=== PATIENT | male | born 1975 | race Caucasian/White ===

== ENCOUNTER 2020-06-15 09:11 | Emergency (ER) | payer OTHER, SELFPAY ==
[2020-06-15 09:12] VITALS: BP 130/97; PULSE 83; RESP 16; TEMP 36.6; O2SAT 98; BMI 27.8
--- NOTE | 2020-06-15 09:23 | HMH.EDGENADL ---
ED Disposition Clinical Impression: Puncture wound Disposition: Home, Self-Care Condition on Discharge: Good Instructions: DI for Puncture Wound Additional Instructions: Additional instructions for WOUND CARE: Clean the wound daily and a bandage. See your physician in 3-5 days for a wound check if any concerns. Return to the emergency room if increasing pain, swelling, redness, red streaks, pus drainage, or fever. Referrals: PCP,No [Non-Staff] - - Critical Care Critical Care Time: No Attestation: On 06/15/20, the high probability of a clinically significant, sudden or life threatening deterioration of the following system(s) required my full and direct attention, intervention and personal management. The time I documented below is in addition to time spent performing reported procedures but includes the following listed in this critical care notation. Medical Decision Making - Harsha Inquiry Pt receiving controlled substance: No Vital Signs: 06/15/20 09:12 Temperature 97.9 F Temperature Source Oral Pulse Rate [Radial] 83 Respiratory Rate 16 Blood Pressure [Right Arm] 130/97 H Blood Pressure Mean [Right Arm] 108 Blood Pressure Position [Right Arm] Sitting 02 Sat by Pulse Oximetry 98 Oxygen Delivery Method Room Air Orders (Tests/Meds): ED MEDICATIONS Discontinued Medications Generic Name Dose Route Start Last Admin Trade Name Freq PRN Reason Stop Dose Admin Neomycin/Polymyxin/Bacitracin 1 each 06/15/20 09:31 Neosporin Ointment 0.9gm Udp TP 06/15/20 09:32 ONCE ONE ORDERS Category Date Time Status Hand XR left minimum 3 views [XR hand LT min 3V] Stat Exams 06/15/20 09:28 Taken - Radiology Data #1 Image(s): Hand Image Reviewed: Yes I reviewed the patient's radiology image Soft tissue injury/air in first webspace. No foreign body or fracture seen. General Adult HPI - General Chief complaint: Wound/Laceration Stated complaint: WC [id number] puncture wound,left hand Time Seen by Provider: 06/15/20 09:23 Mode of Arrival: Ambulatory Limitations: No Limitations Description of Symptoms (Recalled from ER Triage Doc. by RN): to ed per pvt car pt employee [employer] was using a drill it slipped hitting lt hand web space between thumb and index finger. PW noted no active bleeding noted. - History of Present Illness HPI narrative: States I stabbed myself . Puncture wound left hand first webspace with a drill bit when his drill slipped. Denies numbness or weakness. Does not think it hit bone, but is not sure, states it went pretty deep. Does not suspect foreign body. States he does not have much pain. Last tetanus immunization 2 weeks ago at the start of his employment. States I was just going to put a Band-Aid on it, but they made me come get checked out . - Related Data Home Medications Medication Instructions Recorded Confirmed Pantoprazole Sodium 40 mg PO DAILY 06/15/20 06/15/20 Allergies Allergy/AdvReac Type Severity Reaction Status Date / Time No Known Allergies Allergy Verified 06/15/20 09:23 [facility] History - Hepatitis A Screen Drug use history?: No High risk sexual behaviors?: No History of sexually transmitted infection?: No Currently employed?: No Childcare worker?: No Do you have indoor plumbing?: Yes Do you have electricity?: Yes Attestation statement:: This patient has been screened for Hepatitis A risk factors. I have reviewed the patient's past medical history: Yes ROS Obtained: Yes Systems reviewed as appropriate & no additional complaints - Musculoskeletal Musculoskeletal: Reports as per HPI - Neurologic Neurologic: Denies numbness, Denies weakness Physical Exam - General General appearance: alert, in no apparent distress - Respiratory Respiratory exam: Absent: respiratory distress - Cardiovascular Cardiovascular exam: Present: regular rate - Extremities Exam Extremities exam: Present: normal capillary
--- NOTE | 2020-06-15 09:28 | XR_ITS ---
PROCEDURE: XR HAND LT MIN 3V Referring Doctor: Meliton Palma Patient Age:45Y CLINICAL INDICATION: injury drill bit with between 1st and 2nd digits COMPARISON: No exams were available for comparison FINDINGS: no fracture or dislocation. No lytic or blastic change. There is normal mineralization. The joint spaces are well-preserved. No significant degenerative/arthritic changes. No erosive changes evident. There is soft tissue changes related to the injury of the with space between the 1st and 2nd digit but no radiopaque foreign bodies seen here. Osseous structures appear intact IMPRESSION: No fracture evident. Osseous structures intact left hand Soft tissue injury and changes at the webspace between 1st and 2nd digit noted . No radiopaque foreign body Dictated by: Guanakito Cabrera MD 06/15/2020 10:21 Guanakito Cabrera MD in [place] 06/15/2020 10:21
--- NOTE | 2020-06-15 10:34 | PC.NURSE ---
wound flushed with large amounts of water and dressing applied
--- NOTE | 2020-06-15 10:35 | PC.NURSE ---
LAB CALLED REGARDING UDS
[2020-06-15 10:47] VITALS: BP 126/93; PULSE 65; RESP 20; TEMP 36.6; O2SAT 99
--- NOTE | 2020-06-15 10:48 | PC.NURSE ---
LAB AT BEDSIDE
== END 2020-06-15 10:57 | disposition home or self-care (01) ==
PROVIDERS: Emergency Provider Emergency Medicine; PCP Internal Medicine
DX: S61.432A Puncture wound without foreign body of left hand, initial encounter (principal); W31.0XXA Contact with mining and earth-drilling machinery, initial encounter; Y92.69 Other specified industrial and construction area as the place of occurrence of the external cause; Y99.0 Civilian activity done for income or pay
CPT/HCPCS: 73130; 99282

== ENCOUNTER 2020-09-17 14:04 | Emergency (ER) | payer OTHER, SELFPAY ==
[2020-09-17 14:20] VITALS: BP 129/91; PULSE 90; RESP 16; TEMP 36.8; O2SAT 100; BMI 27.3
--- NOTE | 2020-09-17 14:26 | HMH.EDUTC ---
[facility] [place] Clinical Impression: Viral syndrome Disposition: Home, Self-Care Condition on Discharge: Good Instructions: Preventing the Spread of Coronavirus Discharge Instructions Additional Instructions: Drink plenty of fluids. Take tylenol for pain or fever. Return if you begin to have difficulty breathing. Follow up with your regular doctor. GO TO THE ER FOR ANY WORSENING SYMPTOMS Prescriptions: Ondansetron [Zofran 4mg ODT] 4 mg PO Q8HP PRN #20 tab.rapdis PRN Reason: Nausea Transmission Status: Received by [id number] Referrals: Jose Guy [Primary Care Provider] - Time of Disposition: 14:29 Medical Decision Making - Medical Records Medical records reviewed: No: I reviewed the patient's medical records. - Harsha Inquiry Pt receiving controlled substance: No Vital Signs: 09/17/20 14:20 09/17/20 14:48 Temperature 98.3 F 98 F Temperature Source Oral Pulse Rate 79 Pulse Rate [Right] 90 Respiratory Rate 16 14 Blood Pressure 000/00 L Blood Pressure [Right Arm] 129/91 H Blood Pressure Mean [Right Arm] 103 Blood Pressure Source [Right Arm] Automatic Cuff Blood Pressure Position [Right Arm] Sitting 02 Sat by Pulse Oximetry 100 Oxygen Delivery Method Room Air Orders (Tests/Meds): ORDERS Category Date Time Status Covid-19 Nasal PCR ([facility]) Routine Lab 09/17/20 14:15 Received [facility] [place] HPI - General Stated complaint: cov test Time Seen by Provider: 09/17/20 14:26 Mode of Arrival: Ambulatory Source of Information: Patient Limitations: No Limitations Description of Symptoms (Recalled from Triage Doc. by RN): pt was out of state to [place] this past weekend. pt c/o nausea, lethary, cough , PIZARRO, and runny nose. HEENT Symptoms (Recalled from RN notes): Yes (PIZARRO and runny nose) Resp Symptoms (Recalled from RN notes): Yes (cough) Skin Symptoms (Recalled from RN notes): No MS Symptoms (Recalled from RN notes): No Functional Status (Recalled from RN notes): na - History of Present Illness Provider Complaint: He is here needing to be tested for covid. He states that for the past 2 days he has had chilling, a dry cough, sore throat and nausea. He was exposed to covid-19 last week. - Related Data Home Medications Medication Instructions Recorded Confirmed Pantoprazole Sodium 40 mg PO DAILY 06/15/20 06/15/20 Previous Rx's Medication Instructions Recorded Ondansetron [Zofran 4mg ODT] 4 mg PO Q8HP PRN #20 tab.rapdis 09/17/20 Allergies Allergy/AdvReac Type Severity Reaction Status Date / Time No Known Allergies Allergy Verified 06/15/20 09:23 - Worker's Comp Is this a Worker's Comp case?: No [facility] History - Hepatitis A Screen Drug use history?: No High risk sexual behaviors?: No History of sexually transmitted infection?: No Currently employed?: No Childcare worker?: No Do you have indoor plumbing?: Yes Do you have electricity?: Yes Attestation statement:: This patient has been screened for Hepatitis A risk factors. I have reviewed the patient's past medical history: Yes ROS Obtained: Yes All systems reviewed & no additional complaints - Constitutional Constitutional: Reports system reviewed and no additional complaints, except as docu - Eyes Eyes: Reports system reviewed and no additional complaints, except as docu - ENT Ears, Nose, Mouth, and Throat: Reports system reviewed and no additional complaints, except as docu - Cardiovascular Cardiovascular: Reports system reviewed and no additional complaints, except as docu Physical Exam - General General appearance: alert, in no apparent distress - Head Head exam: atraumatic, normocephalic, normal inspection - Eye Eye exam: Present: normal appearance, PERRL, EOMI - ENT ENT exam: Present: normal exam, normal oropharynx, mucous membranes moist, TM's normal bilaterally, normal external ear exam - Neck Neck exam: Present: normal inspection, full ROM, trachea mi
[2020-09-17 14:48] VITALS: BP 000/00; PULSE 79; RESP 14; TEMP 36.6
--- NOTE | 2020-09-18 09:15 | PC.NURSE ---
spoke with pt to relay positive covid results.
== END 2020-09-17 14:48 | disposition home or self-care (01) ==
PROVIDERS: Emergency Provider Nurse Practitioner Family; PCP Internal Medicine
DX: U07.1 COVID-19 (principal)
CPT/HCPCS: 99202; G0463; U0003

== ENCOUNTER 2020-12-20 12:58 | Emergency (ER) | payer OTHER, SELFPAY ==
[2020-12-20] VITALS (8 sets, daily range): BP systolic 118–149; BP diastolic 82–98; PULSE 70–74; RESP 16–21; TEMP 36.5–36.7; O2SAT 96–100; BMI 27.3
--- NOTE | 2020-12-20 13:34 | XR_ITS ---
PROCEDURE: XR CHEST PORTABLE CLINICAL HISTORY: near syncope COMPARISON: No exams were available for comparison FINDINGS: The cardiomediastinal silhouette and pulmonary vascularity are within normal limits. The lungs are clear without infiltrates, suspicious nodules, or pleural effusions. There are mild atelectatic changes or fibrotic changes in the right lung base. No acute bony findings. IMPRESSION: Mild right basilar atelectasis or fibrosis otherwise negative Dictated by: Reggie Zambrano MD 12/20/2020 15:33 Reggie Zambrano MD in [place] 12/20/2020 15:33
--- NOTE | 2020-12-20 13:34 | ECG_ITS ---
APPROVED REPORT Exam: Resting ECG HR:73 bpm ECG Measurements Heart Rate 73 AXES AK 180 P 71 QRSd 78 QRS 79 QT 360 T 74 QTc 396 Conclusion Normal sinus rhythm Normal ECG Electronically signed by : Elmer Walls, 12/20/2020 17:39:38
--- NOTE | 2020-12-20 13:40 | HMH.EDSYNC ---
ED Disposition Clinical Impression: Near syncope Disposition: Home, Self-Care Condition on Discharge: Good Instructions: Dizziness, Nonvertigo Referrals: Jose Guy [Primary Care Provider] - - Critical Care Critical Care Time: No Attestation: On 12/20/20, the high probability of a clinically significant, sudden or life threatening deterioration of the following system(s) required my full and direct attention, intervention and personal management. The time I documented below is in addition to time spent performing reported procedures but includes the following listed in this critical care notation. Medical Decision Making - Medical Records Medical records reviewed: Yes: I reviewed the patient's medical records. - Harsha Inquiry Pt receiving controlled substance: No Vital Signs: 12/20/20 13:00 12/20/20 13:29 12/20/20 13:31 Temperature 98.1 F 97.7 F Temperature Source Oral Oral Pulse Rate 74 Pulse Rate [Right Brachial] 74 73 Respiratory Rate 19 21 16 Blood Pressure 146/98 H Blood Pressure [Right Arm] 149/86 H 146/98 H Blood Pressure Mean [Right Arm] 107 114 Blood Pressure Source [Right Arm] Automatic Cuff Automatic Cuff Blood Pressure Position [Right Arm] Sitting Sitting 02 Sat by Pulse Oximetry 100 97 98 Oxygen Delivery Method Room Air Room Air 12/20/20 13:45 12/20/20 13:51 12/20/20 14:00 Temperature Temperature Source Pulse Rate 71 70 73 Pulse Rate [Right Brachial] Respiratory Rate Blood Pressure 129/82 129/82 124/84 Blood Pressure [Right Arm] Blood Pressure Mean [Right Arm] Blood Pressure Source [Right Arm] Blood Pressure Position [Right Arm] 02 Sat by Pulse Oximetry 96 97 98 Oxygen Delivery Method 12/20/20 14:30 Temperature Temperature Source Pulse Rate 73 Pulse Rate [Right Brachial] Respiratory Rate Blood Pressure 118/82 Blood Pressure [Right Arm] Blood Pressure Mean [Right Arm] Blood Pressure Source [Right Arm] Blood Pressure Position [Right Arm] 02 Sat by Pulse Oximetry 96 Oxygen Delivery Method - Lab Data Lab results reviewed: Yes: I reviewed the patient's lab results. Lab Results 12/20/20 13:35: WBC 6.7, RBC 5.31, Hgb 16.0, Hct 47.6, MCV 89.6, MCH 30.1, MCHC 33.6, RDW 12.8, Plt Count 203, MPV 7.4, Neut % (Auto) 64.3, Lymph % (Auto) 28.5, Piute % (Auto) 5.0, Eos % (Auto) 1.9, Baso % (Auto) 0.3, Neut # (Auto) 4.3, Lymph # (Auto) 1.9, Piute # (Auto) 0.3, Eos # (Auto) 0.1, Baso # (Auto) 0.0 12/20/20 13:35: Sodium 141, Potassium 3.7, Chloride 105, Carbon Dioxide 28, Anion Gap 11.7, BUN 13, Creatinine 0.90, Estimated Creat Clear 115, Estimated GFR 91, Est GFR ( Amer) 110, Glucose 104 H, Calcium 9.0, Total Bilirubin 1.1, AST 27, ALT 21, Alkaline Phosphatase 53, Troponin I < 0.01, Total Protein 7.4, Albumin 4.5, Globulin 2.9, Albumin/Globulin Ratio 1.6 Result diagrams: 12/20/20 13:35 12/20/20 13:35 Orders (Tests/Meds): ED MEDICATIONS Generic Name Dose Route Start Last Admin Trade Name Freq PRN Reason Stop Dose Admin Sodium Chloride 1,000 mls @ 999 mls/hr 12/20/20 13:45 12/20/20 13:41 Sod Chlor 0.9% 1000ml Bag IV 12/20/20 14:45 999 mls/hr .Q1H1M GERMAN Administration ORDERS Category Date Time Status XR chest portable Stat Exams 12/20/20 13:34 Taken Troponin I Q3H Lab 12/20/20 16:45 Ordered Troponin I Q3H Lab 12/20/20 19:45 Ordered ECG Request by /Nse Stat Y 12/20/20 13:34 Ordered Medical Decision Narrative: Benign exam. No evidence or risk factors for PE, DVT. No stroke symptoms. Differential diagnosis includes orthostatic hypotension versus arrhythmia versus electrolyte abnormality negative workup. bahamian syncope rule score of 0, low risk for 30 day mortality. [facility], return indications reviewed. Syncope HPI - General Chief Complaint: Dizziness Stated Complaint: lightheaded, weakness, cold sweats Time Seen by Provider: 12/20/20 13:45 Mode of Arrival: Ambulat
[2020-12-20 13:48] LABS: Basophils % 0.3 % (0.1-2.0); Eosinophils # 0.1 K/mm3 (0.0-0.4); Eosinophils % 1.9 % (0.1-12.0); Hematocrit 47.6 % (42.0-52.0); Lymphocytes # 1.9 K/mm3 (0.7-4.5); Lymphocytes % 28.5 % (10-50); Mean Corpuscular HGB Conc 33.6 g/dL (31.8-35.4); Mean Corpuscular Hemoglobin 30.1 pg (27.0-31.2); Mean Corpuscular Volume 89.6 fl (80-94); Mean Platelet Volume 7.4 fl (7.4-10.4); Monocytes # 0.3 K/mm3 (0.1-1.0); Neutrophils # 4.3 K/mm3 (1.8-7.8); Neutrophils % 64.3 % (37.0-80.0); Platelet Count 203 K/mm3 (142-424); Red Blood Count 5.31 M/mm3 (4.60-6.20); Red Cell Distribution Width 12.8 % (11.5-17.5); White Blood Count 6.7 K/mm3 (4.8-10.8)
[2020-12-20 13:49] LABS: Chloride 105 mmol/L (98-107); Potassium 3.7 mmoL/L (3.5-5.1); Sodium 141 mmol/L (136-145)
[2020-12-20 13:51] LABS: Blood Urea Nitrogen 13 mg/dl (9-20); Creatinine Clearance Estimated 115 mL/min (50-200); Estimated Glomerular Filt Rate 91 ml/min (>60); GFR (African American) 110 ML/MIN (>60)
[2020-12-20 13:52] LABS: Alanine Aminotransferase 21 U/L (12-78); Albumin Level 4.5 g/dl (3.5-5.0); Albumin/Globulin Ratio 1.6 (1.1-1.8); Alkaline Phosphatase 53 U/L (38-126); Anion Gap 11.7 mEq/L (5-15); Aspartate Amino Transferase 27 U/L (17-59); Bilirubin,Total 1.1 mg/dl (0.2-1.3); Carbon Dioxide 28 mmol/L (22.0-30.0); Globulin 2.9 g/dL (1.3-3.2); Glucose 104 mg/dl (74-100); Total Protein,Serum 7.4 g/dl (6.3-8.2)
[2020-12-20 14:06] LABS: Troponin I < 0.01 ng/ml (0.00-0.034)
== END 2020-12-20 15:00 | disposition home or self-care (01) ==
LOC: UTC 13:10 → ER 13:23
PROVIDERS: Emergency Provider Emergency Medicine; PCP Internal Medicine
DX: R55 Syncope and collapse (principal)
CPT/HCPCS: 71045; 80053; 84484; 85025; 93005; 96365; 99283

== ENCOUNTER 2024-01-08 09:09 | Emergency (ER) | payer OTHER, SELFPAY ==
[2024-01-08 09:15] VITALS: BP 119/77; PULSE 98; RESP 20; TEMP 37.4; O2SAT 99; BMI 28.1
[2024-01-08 09:35] LABS: UTC Strep Screen (Rapid) Negative (Negative)
--- NOTE | 2024-01-08 09:52 | ED_ITS ---
Discharge Plan Disposition Patient Disposition: Home, Self-Care Condition: Good Prescriptions Prescriptions: New azithromycin [Zithromax] 250 mg tablet 250 mg PO UD DOSE PK Qty: 6 0RF Rx Instructions: Take two (2) tablets today, then one (1) tablet days #2 thru #5 methylprednisolone 4 mg Tablets,Dose Pack 4 mg PO DIRECTED 6 Days Qty: 21 0RF Rx Instructions: Take 1 pack as directed for 6 days benzonatate 100 mg capsule 100 mg PO TIDP PRN (Reason: Cough) Qty: 30 0RF No Action tamsulosin 0.4 mg Capsule 0.4 mg PO DAILY rosuvastatin 40 mg Tablet 40 mg PO DAILY pantoprazole 40 MG tablet,delayed release (DR/EC) 40 mg PO DAILY Referrals Follow up/Referrals: Provider,Referral, MD [Primary Care Provider] - See instructions Activity Restrictions/Add. Instructions Additional Instructions/Restrictions: Drink plenty of fluids. Take tylenol or ibuprofen for pain or fever. Take the medications as directed. Follow up with your regular doctor. GO TO THE ER FOR ANY WORSENING SYMPTOMS Don't start the oral steroids (medrol dose pack) until tomorrow since you had the shot her Clinical Impressions Clinical Impression: Sinusitis, Acute viral syndrome Instructions Patient Instructions: Sinusitis, DI for Sinusitis, Dexamethasone Injection Discharge ED Provider: Antoni Martínez [facility] [place] General Stated complaint: congestion, bodyaches Mode of Arrival: Ambulatory Source of Information: Patient Limitations: No Limitations Time Seen by Provider: 01/08/24 09:52 Description of Symptoms (Recalled from Triage Doc. by RN): PATIENT C/O HEAD CONGESTION, SORE THROAT, AND BODY ACHES SINCE YESTERDAY MORNING HEENT Symptoms (Recalled from RN notes): Yes Resp Symptoms (Recalled from RN notes): No Skin Symptoms (Recalled from RN notes): No MS Symptoms (Recalled from RN notes): No Functional Status (Recalled from RN notes): WNL History of Present Illness Provider Complaint: He states that for the past 2 days he has had sore throat, fever, chills, body aches, sinus congestion, and chest congestion. Related Data Home Medications Medication Instructions Recorded Confirmed pantoprazole 40 mg tablet,delayed 40 mg PO DAILY GERD 06/15/20 01/08/24 release rosuvastatin 40 mg tablet 40 mg PO DAILY 01/08/24 01/08/24 tamsulosin 0.4 mg capsule 0.4 mg PO DAILY 01/08/24 01/08/24 Previous Rx's Medication Instructions Recorded azithromycin 250 mg tablet 250 mg PO UD DOSE PK #6 tabs 01/08/24 (Zithromax) benzonatate 100 mg capsule 100 mg PO TIDP PRN Cough #30 caps 01/08/24 methylprednisolone 4 mg tablets in 4 mg PO DIRECTED 6 days #21 tabs 01/08/24 a dose pack Allergies Allergy/AdvReac Type Severity Reaction Status Date / Time No Known Allergies Allergy Verified 01/25/21 12:54 Worker's Comp Is this a Worker's Comp case?: No [facility] Disclaimer: The information contained in this section may have been updated after the patient was seen, as this information can be updated by other users. Medical History (Updated 01/08/24 @ 10:04 by Antoni Martínez APRN) Cancer History of gastroesophageal reflux (GERD) Hyperlipidemia Surgical History (Updated 01/08/24 @ 09:34 by Rianna Pierre RN) Hx of surgical amputation of finger History of cholecystectomy Social History Smoking Status: Unknown if ever smoked alcohol intake: never current occupational status: other Travel in the last 8 weeks: None ROS Obtained: Yes All systems reviewed & no additional complaints except as documented Constitutional Constitutional: Reports chills and Reports fever(s) Eyes Eyes: Denies eye discharge ENT Ears, Nose, Mouth, and Throat: Reports as per HPI Cardiovascular Cardiovascular: Denies chest pain Respiratory Respiratory: Denies chest congestion and Reports cough Gastrointestinal Gastrointestingal: Reports nausea; Denies abdominal pain, constipation, cramping, diarrhea or vomiting Musculoskeletal Musculoskeletal: Denies arthralgias Integumentary/Breasts Skin/Breast: Denies rash Neurologic Neurologic: Denies paresthesias Physical Exam General General appearance: alert and in no apparent distress Head Head exam: atraumatic, normocephalic and normal inspection Eye Eye exam: Present normal appearance, PERRL and EOMI ENT ENT exam: Present mucous membranes moist and normal external ear exam Expanded ENT Exam TM/Canal exam: Bilateral TM: erythema and bulging Nose exam: Absent sinus tenderness Mouth exam: Present normal external inspection; Absent drooling Teeth exam: Present normal inspection Throat exam: Present tonsillar erythema, tonsillomegaly and tonsillar exudate Neck Neck exam: Present normal inspection, full ROM and trachea midline; Absent tenderness, meningismus or lymphadenopathy Chest Chest inspection: Present normal inspection and symmetric chest wall rise; Absent tenderness Respiratory Respiratory exam: Present normal lung sounds bilaterally; Absent respiratory distress, wheezes, stridor or accessory muscle use Cardiovascular Cardiovascular exam: Present regular rate and normal rhythm; Absent systolic murmur or diastolic murmur Abdominal Exam Abdominal exam: Present soft and normal bowel sounds; Absent distention, tende rness, guarding, rebound or rigidity Extremities Exam Extremities exam: Present normal inspection and normal capillary refill; Absent calf tenderness Back Exam Back exam: Present normal inspection and full ROM; Absent tenderness, CVA tenderness (R) or CVA tenderness (L) Neurological Exam Neurological exam: Present alert, oriented X3 and CN II-XII intact Psychiatric Psychiatric exam: Present normal affect and normal mood Skin Skin exam: Present warm, dry, intact and normal color Medical Decision Making Medical Records Medical records reviewed: No I reviewed the patient's medical records. Harsha Inquiry Pt receiving controlled substance: No Vital Signs: 01/08/24 09:15 Temperature 99.3 F Temperature Source Oral Pulse Rate [Left Brachial] 98 H Respiratory Rate 20 Blood Pressure [Left Arm] 119/77 Blood Pressure Mean [Left Arm] 91 Blood Pressure Source [Left Arm] Automatic Cuff Blood Pressure Position [Left Arm] Sitting 02 Sat by Pulse Oximetry 99 Oxygen Delivery Method Room Air Lab Data Lab results reviewed: Yes I reviewed the patient's lab results. Lab Results 01/08/24 09:26: Strep Scn Rapid [facility] Negative Orders (Tests/Meds): ED MEDICATIONS Discontinued Medications Generic Name Dose Route Start Last Admin Trade Name Yvonne PRN Reason Stop Dose Admin Ceftriaxone Sodium 1 gm 01/08/24 09:48 Ceftriaxone 1gm Vial IM 01/08/24 09:49 ONCE ONE Dexamethasone Sodium Phosphate 8 mg 01/08/24 09:48 Dexamethasone 4mg/Ml 1ml Vial IM 01/08/24 09:49 ONCE ONE Lidocaine HCl 0 ml 01/08/24 09:48 Lidocaine 1% 5ml Pf Vial IM 01/08/24 09:49 ONCE ONE ORDERS Category Date Time Status Covid-19 Nasal PCR ([facility]) Routine Lab 01/08/24 09:23 Received Strep Screen Confirmation Stat Micro 01/08/24 09:26 Received
[2024-01-08 09:57] LABS: Influenza A, PCR Not Detected (NotDetected); Influenza B, PCR Not Detected (NotDetected)
[2024-01-08] MEDS: LIDOCAINE 1% 5ML PF VIAL IM (10:00)
[2024-01-08] MEDS: DEXAMETHASONE 4MG/ML 1ML VIAL 8 MG IM (10:00)
[2024-01-08] MEDS: cefTRIAXone 1GM VIAL 1 GM IM (10:00)
[2024-01-08 10:03] VITALS: BP 119/77; PULSE 98; RESP 20; TEMP 37.4; O2SAT 99
[2024-01-08 10:54] LABS: Coronavirus 19, PCR Detected (NotDetected)
== END 2024-01-08 10:10 | disposition home or self-care (01) ==
PROVIDERS: Emergency Provider Nurse Practitioner Family
DX: U07.1 COVID-19 (principal); J01.90 Acute sinusitis, unspecified; R07.0 Pain in throat; R50.9 Fever, unspecified
CPT/HCPCS: 87636; 87880; 96372; 99204; 99212; G0463; J0696; J1100